=== PATIENT | female | born 1995 | race Two or more races ===

== ENCOUNTER 2023-07-29 02:25 | Inpatient (IN) | payer MEDICAID, OTHER ==
[2023-07-29] VITALS (8 sets, daily range): BP systolic 99–109; BP diastolic 59–82; PULSE 80–103; RESP 16–18; TEMP 97–99.1; O2SAT 97–100
[~2023-07-29] VITALS: Ht 165.1 cm; Wt 55.0 kg
[2023-07-29 03:10] LABS: BASOPHILS % (AUTO) 2.4 % (0.0-2.0); EOSINOPHILS % (AUTO) 1.3 % (1.0-6.0); HEMATOCRIT 43.5 % (36-46); HEMOGLOBIN 14.8 g/dL (12.0-16.0); LYMPHOCYTES # (AUTO) 2.9 K/uL (1.0-4.8); LYMPHOCYTES % (AUTO) 40.2 % (22.0-44.0); MEAN CORPUSCULAR HGB CONC 34.1 G/dL (31.0-37.0); MEAN CORPUSCULAR VOLUME 91 fL (80-100); MONOCYTES # (AUTO) 0.3 K/uL (0.1-1.0); MONOCYTES % (AUTO) 3.5 % (2.0-9.0); NEUTROPHILS # (AUTO) 3.9 K/uL (1.8-7.7); NEUTROPHILS % (AUTO) 52.6 % (40.0-70.0); PLATELET COUNT (AUTO) 364 K/uL (150-450); RED BLOOD CELL COUNT(AUTO) 4.79 MIL/uL (4.00-5.20); RED CELL DISTRIBUTION WIDTH 13.7 % (11.5-14.5); WHITE BLOOD COUNT (AUTO) 7.3 K/uL (4.5-11.0)
[2023-07-29 03:17] LABS: ANION GAP 12 mmol/L (8-16); CALCIUM, TOTAL 8.5 mg/dL (8.8-10.5); CARBON DIOXIDE 26 mmol/L (22-29); CHLORIDE 105 mmol/L (98-107); CREATININE 0.77 mg/dL (0.60-1.30); GLOMERULAR FILTR. RATE CALC > 60 mL/min (>60); GLUCOSE,RANDOM 114 mg/dL (70-110); POTASSIUM 3.8 mmol/L (3.5-5.1); SODIUM SERUM 143 mmol/L (136-145); UREA NITROGEN, BLOOD 5 mg/dL (7-18)
[2023-07-29 03:23] LABS: ALANINE AMINOTRANSFERASE 18 U/L (12-78); ALBUMIN 4.6 g/dL (3.4-5.0); ALKALINE PHOSPHATASE 79 U/L (46-116); ASPARTATE AMINOTRANSFERASE 25 U/L (15-37); BILIRUBIN,TOTAL 0.5 mg/dL (0.1-1.0); TOTAL PROTEIN, SERUM 8.5 g/dL (6.4-8.2)
[2023-07-29 03:30] LABS: ALCOHOL, BLOOD (SERUM) 322 mg/dL (0-10)
[2023-07-29 03:34] LABS: COVID AG,FIA SOURCE NASAL SWAB
[2023-07-29 03:41] LABS: PH,URINE DRUG SCREEN 7.5 (5.0-8.0)
[2023-07-29] MEDS ORDERED: OLANZapine 5 MG RAPDIS TABLET PO PRN (03:45)
[2023-07-29 03:46] LABS: ALCOHOL, URINE DRUG SCREEN POSITIVE (NEGATIVE); AMPHET/METH SCREEN,URINE NEGATIVE (NEGATIVE); BARBITURATE SCREEN, URINE NEGATIVE (NEGATIVE); BENZODIAZEPINES SCREEN,URINE NEGATIVE (NEGATIVE); CANNABINOID SCREEN,URINE NEGATIVE (NEGATIVE); COCAINE SCREEN,URINE NEGATIVE (NEGATIVE); METHADONE SCREEN, URINE NEGATIVE (NEGATIVE); OPIATE SCREEN,URINE NEGATIVE (NEGATIVE); PHENCYCLIDINE SCREEN,URINE NEGATIVE (NEGATIVE)
[2023-07-29 03:54] LABS: SARS-COV2 (COVID) ANTIGEN,FIA Negative (Negative)
[2023-07-29] MEDS: LORazepam 2 MG TABLET PO PRN (04:29)
[2023-07-29] MEDS ORDERED: QUET100T PO (04:42)
[2023-07-29] MEDS: QUEtiapine FUMARATE 100 MG TABLET PO ONE (05:09)
[2023-07-29] MEDS: ACETAMINOPHEN 325 MG TABLET PO ONE (07:02)
[2023-07-29] MEDS ORDERED: MAG HYDROX/ALUMINUM HYD/SIMETH ES 30 ML SUSPENSION UDCUP PO PRN (09:45)
[2023-07-29] MEDS ORDERED: MAGNESIUM HYDROXIDE SUSPENSION 30 ML UDCUP PO PRN (09:45)
[2023-07-29] MEDS ORDERED: LOPERAMIDE HCL 2 MG CAPSULE PO PRN ×2 (09:45)
[2023-07-29] MEDS ORDERED: GuaiFENesin/D-METHORPHAN [SUGAR-FREE] 200-20MG/10 ML SYRUP UDCUP PO PRN (09:45)
[2023-07-29] MEDS ORDERED: LORazepam 2 MG TABLET PO PRN (09:45)
[2023-07-29] MEDS ORDERED: HydrOXYzine PAMOATE 50 MG CAPSULE PO PRN (09:45)
[2023-07-29] MEDS ORDERED: TUBERCULIN, PURIFIED PROTEIN DERIVATIVE 5 TU/0.1 ML SYRINGE ID ONE (09:45)
[2023-07-29] MEDS: QUEtiapine FUMARATE 100 MG TABLET PO PRN (10:24)
[2023-07-29] MEDS: HALOPERIDOL LACTATE 5 MG/ML VIAL IM ONE (11:10)
[2023-07-29] MEDS: DiphenhydrAMINE HCL 50 MG/ML VIAL IM ONE (11:10)
[2023-07-29] MEDS: CYANOCOBALAMIN 1,000 MCG/ML VIAL IM ONE (12:30)
[2023-07-29] MEDS: THIAMINE 100 MG TABLET PO SCH (17:11)
[2023-07-29] MEDS: QUEtiapine FUMARATE 200 MG TABLET PO SCH (20:19)
[2023-07-29] MEDS: MELATONIN 5 MG TABLET PO SCH (20:19)
[2023-07-29] MEDS: ACETAMINOPHEN 325 MG TABLET PO PRN (20:24)
[2023-07-29] MEDS: PROMETHAZINE HCL 25 MG TABLET PO PRN (20:24)
[2023-07-30 08:21] LABS: HEMOGLOBIN A1C 5.1 % (3.8-5.6)
[2023-07-30 08:29] LABS: FREE T4 (FREE THYROXINE) 0.72 ng/dL (0.76-1.46); THYROID STIMULATING HORMONE 2.02 uIU/mL (0.36-3.74)
[2023-07-30 08:31] VITALS: BP 114/76; PULSE 93; RESP 16; TEMP 97.8; O2SAT 98
[2023-07-30] MEDS: OMEGA-3/DHA/EPA/FISH OIL 1,000 MG CAPSULE PO SCH (08:37)
[2023-07-30] MEDS: FLUoxetine HCL 20 MG CAPSULE PO SCH (08:39)
[2023-07-30] MEDS: MULTIVITAMINS WITH MINERALS, THERAPEUTIC TABLET PO SCH (08:39)
[2023-07-30] MEDS: FOLIC ACID 1 MG TABLET PO SCH (08:39)
[2023-07-30] MEDS: NALTREXONE HCL 50 MG TABLET PO SCH (08:40)
[2023-07-30] MEDS: LORazepam 2 MG TABLET PO SCH (09:40)
[2023-07-30 09:55] VITALS: BP 129/83; PULSE 89; RESP 18; TEMP 96.9; O2SAT 99
[2023-07-30 13:35] LABS: RAPID PLASMA REAGIN NONREACTIVE (NONREACTIVE)
[2023-07-30 20:00] VITALS: BP 148/61; PULSE 89; RESP 18; TEMP 97.8; O2SAT 99
[2023-07-30 20:03] VITALS: BP 148/61; PULSE 89; RESP 18; TEMP 97.8; O2SAT 99
[2023-07-30] MEDS ORDERED: IBUPROFEN 600 MG TABLET PO PRN (21:15)
[2023-07-30] MEDS ORDERED: MAG HYDROX/ALUMINUM HYD/SIMETH ES 30 ML SUSPENSION UDCUP PO PRN (21:15)
[2023-07-30] MEDS ORDERED: HydrOXYzine PAMOATE 50 MG CAPSULE PO PRN (21:15)
[2023-07-30] MEDS ORDERED: CloNIDine HCL 0.1 MG TABLET PO PRN (21:15)
[2023-07-30] MEDS: CloNIDine HCL 0.1 MG TABLET PO SCH (22:00)
[2023-07-30 23:00] VITALS: BP 148/61; PULSE 89; RESP 18; TEMP 97.8; O2SAT 99
[2023-07-31] VITALS (7 sets, daily range): BP systolic 123–137; BP diastolic 68–91; PULSE 79–88; RESP 16–20; TEMP 97.5–98.7; O2SAT 95–98
[2023-07-31 06:17] LABS: PREGNANCY RESULT, SERUM NEGATIVE (NEGATIVE)
[2023-07-31] MEDS ORDERED: ONDANSETRON HCL 4 MG/2 ML VIAL IM ONE (17:15)
[2023-07-31] MEDS: ONDANSETRON HCL 4 MG/2 ML VIAL IM PRN (17:34)
[2023-08-01] MEDS: LORazepam 2 MG TABLET PO PRN (02:58)
[2023-08-01 06:32] VITALS: BP 139/69; PULSE 76; RESP 18; TEMP 99; O2SAT 97
[2023-08-01 08:03] VITALS: BP 122/76; PULSE 97; RESP 17; TEMP 98; O2SAT 97
[2023-08-01] MEDS: POTASSIUM CHLORIDE 20 MEQ ER TABLET PO ONE (08:14)
[2023-08-01] MEDS: LORazepam 1 MG TABLET PO SCH (08:15)
[2023-08-01 09:45] VITALS: BP 129/88; PULSE 80; RESP 18; TEMP 97.8; O2SAT 97
[2023-08-01] MEDS: LORazepam 1 MG TABLET PO PRN (14:23)
[2023-08-01] MEDS: QUEtiapine FUMARATE 100 MG TABLET PO SCH (20:46)
[2023-08-01] MEDS: ZOLPIDEM TARTRATE 10 MG TABLET PO PRN (20:47)
[2023-08-01 23:25] VITALS: BP 106/59; PULSE 73; RESP 18; TEMP 97.4; O2SAT 99
[2023-08-02 06:07] VITALS: BP 102/63; PULSE 70; RESP 16; TEMP 97.8; O2SAT 98
[2023-08-02 08:14] VITALS: BP 112/66; PULSE 73; RESP 16; TEMP 97.8; O2SAT 96
[2023-08-02 08:23] LABS: AMYLASE 67 U/L (25-115); ANION GAP 8 mmol/L (8-16); CALCIUM, TOTAL 8.5 mg/dL (8.8-10.5); CARBON DIOXIDE 25 mmol/L (22-29); CHLORIDE 103 mmol/L (98-107); CHOL/HDL RATIO 3.1 (3.9-5.7); CHOLESTEROL 159 mg/dL (131-200); CREATININE 0.65 mg/dL (0.60-1.30); GLOMERULAR FILTR. RATE CALC > 60 mL/min (>60); GLUCOSE,RANDOM 103 mg/dL (70-110); HDL CHOLESTEROL 52 mg/dL (40-60); LDL CHOL (CALC.) 75 mg/dL (0-130); POTASSIUM 3.7 mmol/L (3.5-5.1); SODIUM SERUM 136 mmol/L (136-145); TRIGLYCERIDES 158 mg/dL (15-150); UREA NITROGEN, BLOOD 14 mg/dL (7-18)
[2023-08-02] MEDS: LORazepam 1 MG TABLET PO PRN (08:47)
[2023-08-02 16:00] VITALS: BP 101/58; PULSE 65; RESP 16; TEMP 98; O2SAT 99
[2023-08-02 16:02] VITALS: BP 92/58; PULSE 82; RESP 18; TEMP 98.1; O2SAT 99
[2023-08-02 18:00] VITALS: BP 106/62; PULSE 76; RESP 16; TEMP 98.3; O2SAT 99
[2023-08-03 09:08] LABS: APPEARANCE,URINE CLEAR (CLEAR); BILIRUBIN,URINE NEGATIVE (NEGATIVE); COLOR,URINE COLORLESS (YELLOW); GLUCOSE, URINE (UA) NEGATIVE (NEGATIVE); KETONES,URINE NEGATIVE (NEGATIVE); LEUKOCYTE ESTERASE ,URINE NEGATIVE (NEGATIVE); NITRATE,URINE NEGATIVE (NEGATIVE); OCCULT BLOOD,URINE SMALL (NEGATIVE); PROTEIN,URINE NEGATIVE (NEGATIVE); SPECIFIC GRAVITIY, URINE 1.005 (1.003-1.030); UROBILINOGEN,URINE <=1.0 mg/dL (<=1.0)
[2023-08-03 09:15] LABS: HCG,QUAL URINE NEGATIVE (NEGATIVE)
[2023-08-03 09:18] LABS: BACTERIA,URINE None Seen /HPF (None Seen); SQUAMOUS EPITHELIAL CELL,UR Few /LPF (None Seen); WBC,URINE None Seen /HPF (0-5)
== END 2023-08-02 23:15 | disposition home or self-care (01) | DRG 753 ==
LOC: EMS 02:30 → B3A 06:34
PROVIDERS: ADMIT Psychiatry & Neurology Psychiatry; ATTEND Psychiatry & Neurology Psychiatry
PROC: GZHZZZZ Group Psychotherapy (ICD-10-PCS; principal; 2023-07-30)
PROC: GZ58ZZZ Individual Psychotherapy, Cognitive-Behavioral (ICD-10-PCS; 2023-07-30)
DX: F31.5 Bipolar disorder, current episode depressed, severe, with psychotic features (principal); R45.851 Suicidal ideations; Z91.148 Patient's other noncompliance with medication regimen for other reason; F10.229 Alcohol dependence with intoxication, unspecified; Z20.822 Contact with and (suspected) exposure to COVID-19; F17.200 Nicotine dependence, unspecified, uncomplicated; J44.9 Chronic obstructive pulmonary disease, unspecified; Y90.8 Blood alcohol level of 240 mg/100 ml or more; Z91.011 Allergy to milk products
CPT/HCPCS: 80048; 80053; 80061; 80307; 81001; 82150; 83036; 84439; 84443; 84703; 85025; 86592; 99285; G0480; J1200; J1630; J2405; J3420; Q9967

== ENCOUNTER 2023-07-31 21:35 | Emergency (ER) | payer MEDICAID, OTHER ==
[~2023-07-31] VITALS: Ht 165.1 cm; Wt 56.0 kg
[~2023-07-31 21:35] MED LIST: QUET100T PO
[2023-07-31 21:44] VITALS: TEMP 99.1
[2023-07-31 22:36] LABS: ANION GAP 10 mmol/L (8-16); CALCIUM, TOTAL 9.2 mg/dL (8.8-10.5); CARBON DIOXIDE 29 mmol/L (22-29); CHLORIDE 101 mmol/L (98-107); CREATININE 0.85 mg/dL (0.60-1.30); GLOMERULAR FILTR. RATE CALC > 60 mL/min (>60); GLUCOSE,RANDOM 136 mg/dL (70-110); POTASSIUM 3.3 mmol/L (3.5-5.1); SODIUM SERUM 140 mmol/L (136-145); UREA NITROGEN, BLOOD 15 mg/dL (7-18)
[2023-07-31 22:38] LABS: BASOPHILS % (AUTO) 0.4 % (0.0-2.0); EOSINOPHILS % (AUTO) 0.1 % (1.0-6.0); HEMATOCRIT 43.1 % (36-46); HEMOGLOBIN 14.3 g/dL (12.0-16.0); LYMPHOCYTES # (AUTO) 1.6 K/uL (1.0-4.8); LYMPHOCYTES % (AUTO) 13.5 % (22.0-44.0); MEAN CORPUSCULAR HEMOGLOBIN 30.1 pg (26.0-34.0); MEAN CORPUSCULAR HGB CONC 33.2 G/dL (31.0-37.0); MEAN CORPUSCULAR VOLUME 91 fL (80-100); MONOCYTES # (AUTO) 0.7 K/uL (0.1-1.0); MONOCYTES % (AUTO) 5.7 % (2.0-9.0); NEUTROPHILS # (AUTO) 9.7 K/uL (1.8-7.7); NEUTROPHILS % (AUTO) 80.3 % (40.0-70.0); PLATELET COUNT (AUTO) 358 K/uL (150-450); RED BLOOD CELL COUNT(AUTO) 4.77 MIL/uL (4.00-5.20); RED CELL DISTRIBUTION WIDTH 13.9 % (11.5-14.5)
[2023-07-31 22:42] LABS: ALANINE AMINOTRANSFERASE 22 U/L (12-78); ALBUMIN 4.4 g/dL (3.4-5.0); ALKALINE PHOSPHATASE 66 U/L (46-116); ASPARTATE AMINOTRANSFERASE 34 U/L (15-37); BILIRUBIN,TOTAL 1.2 mg/dL (0.1-1.0); TOTAL PROTEIN, SERUM 8.3 g/dL (6.4-8.2)
[2023-07-31] MEDS: SODIUM CHLORIDE 0.9% 1,000 ML IV ONE (22:45)
[2023-07-31] MEDS: ONDANSETRON HCL 4 MG/2 ML VIAL IVP ONE (22:46)
[2023-07-31 23:34] VITALS: BP 135/82; PULSE 84; RESP 16
[2023-07-31 23:39] LABS: ALCOHOL, BLOOD (SERUM) < 3 mg/dL (0-10)
[2023-08-01 00:01] LABS: PH,URINE DRUG SCREEN 6.5 (5.0-8.0)
[2023-08-01 00:07] LABS: ALCOHOL, URINE DRUG SCREEN NEGATIVE (NEGATIVE); AMPHET/METH SCREEN,URINE NEGATIVE (NEGATIVE); BARBITURATE SCREEN, URINE NEGATIVE (NEGATIVE); BENZODIAZEPINES SCREEN,URINE NEGATIVE (NEGATIVE); CANNABINOID SCREEN,URINE NEGATIVE (NEGATIVE); COCAINE SCREEN,URINE NEGATIVE (NEGATIVE); METHADONE SCREEN, URINE NEGATIVE (NEGATIVE); OPIATE SCREEN,URINE NEGATIVE (NEGATIVE); PHENCYCLIDINE SCREEN,URINE NEGATIVE (NEGATIVE)
== END 2023-08-01 02:10 | disposition home or self-care (01) ==
LOC: EMS 21:43
DX: F32.9 Major depressive disorder, single episode, unspecified (principal); F17.210 Nicotine dependence, cigarettes, uncomplicated; Z91.011 Allergy to milk products
CPT/HCPCS: 99283; 96374; 96361; 80053; 85025; 36415; 80307; G0480; J2405; J7030

== ENCOUNTER 2023-08-02 20:20 | Inpatient (IN) | payer OTHER ==
[~2023-08-02] VITALS: Ht 167.6 cm; Wt 56.9 kg
[2023-08-02] MEDS: SODIUM CHLORIDE 0.9% 1,000 ML IV ONE (21:36)
[2023-08-02 21:46] LABS: COVID AG,FIA SOURCE NASAL SWAB
[2023-08-02] MEDS: ONDANSETRON HCL 4 MG/2 ML VIAL IVP ONE (21:46)
[2023-08-02 21:48] LABS: HEMATOCRIT 40.5 % (36-46); HEMOGLOBIN 13.6 g/dL (12.0-16.0); LYMPHOCYTES % (AUTO) 31.1 % (22.0-44.0); MEAN CORPUSCULAR HEMOGLOBIN 30.5 pg (26.0-34.0); MEAN CORPUSCULAR HGB CONC 33.6 G/dL (31.0-37.0); MEAN CORPUSCULAR VOLUME 91 fL (80-100); MONOCYTES # (AUTO) 0.4 K/uL (0.1-1.0); MONOCYTES % (AUTO) 6.8 % (2.0-9.0); NEUTROPHILS # (AUTO) 3.9 K/uL (1.8-7.7); NEUTROPHILS % (AUTO) 60.1 % (40.0-70.0); PLATELET COUNT (AUTO) 320 K/uL (150-450); RED BLOOD CELL COUNT(AUTO) 4.46 MIL/uL (4.00-5.20); RED CELL DISTRIBUTION WIDTH 13.2 % (11.5-14.5); WHITE BLOOD COUNT (AUTO) 6.4 K/uL (4.5-11.0)
[2023-08-02 21:49] LABS: SARS-COV2 (COVID) ANTIGEN,FIA Negative (Negative)
[2023-08-02 21:58] LABS: ANION GAP 8 mmol/L (8-16); CALCIUM, TOTAL 8.5 mg/dL (8.8-10.5); CARBON DIOXIDE 26 mmol/L (22-29); CHLORIDE 102 mmol/L (98-107); CREATININE 0.65 mg/dL (0.60-1.30); GLOMERULAR FILTR. RATE CALC > 60 mL/min (>60); GLUCOSE,RANDOM 105 mg/dL (70-110); POTASSIUM 3.9 mmol/L (3.5-5.1); SODIUM SERUM 136 mmol/L (136-145); UREA NITROGEN, BLOOD 15 mg/dL (7-18)
[2023-08-02 22:04] LABS: ALANINE AMINOTRANSFERASE 35 U/L (12-78); ALBUMIN 3.6 g/dL (3.4-5.0); ALKALINE PHOSPHATASE 57 U/L (46-116); ASPARTATE AMINOTRANSFERASE 28 U/L (15-37); BILIRUBIN,TOTAL 0.4 mg/dL (0.1-1.0); LIPASE 56 U/L (16-77)
[2023-08-02 22:13] LABS: LACTIC ACID 1.3 mmol/L (0.4-2.0)
[2023-08-02] MEDS ORDERED: LORazepam 2 MG TABLET PO PRN (22:30)
[2023-08-02] MEDS: ACETAMINOPHEN 325 MG TABLET PO ONE (22:52)
[2023-08-02] MEDS: LORazepam 2 MG TABLET PO SCH (22:52)
[2023-08-02] MEDS: 1: MAGNESIUM SULFATE 2 GM, MVI, ADULT NO.1 WITH VIT K 10 ML, THIAMINE 100 MG, FOLIC ACID IV SCH (23:06)
[2023-08-03] VITALS (7 sets, daily range): BP systolic 111–137; BP diastolic 66–87; PULSE 62–74; RESP 18–20; TEMP 98.1–98.9; O2SAT 99
[2023-08-03] MEDS: HEPARIN SODIUM,PORCINE 5,000 UNITS/ML VIAL SQ SCH
[2023-08-03] MEDS: ONDANSETRON HCL 4 MG/2 ML VIAL IVP PRN (05:32)
[2023-08-03 06:49] LABS: APPEARANCE,URINE CLEAR (CLEAR); BILIRUBIN,URINE NEGATIVE (NEGATIVE); COLOR,URINE YELLOW (YELLOW); GLUCOSE, URINE (UA) NEGATIVE (NEGATIVE); KETONES,URINE NEGATIVE (NEGATIVE); LEUKOCYTE ESTERASE ,URINE NEGATIVE (NEGATIVE); NITRATE,URINE NEGATIVE (NEGATIVE); OCCULT BLOOD,URINE NEGATIVE (NEGATIVE); PH,URINE 7.5 (5.0-8.0); PROTEIN,URINE NEGATIVE (NEGATIVE); UROBILINOGEN,URINE <=1.0 mg/dL (<=1.0)
[2023-08-03 06:55] LABS: BACTERIA,URINE None Seen /HPF (None Seen); RBC,URINE None Seen /HPF (0-2); WBC,URINE None Seen /HPF (0-5)
[2023-08-03] MEDS ORDERED: LORazepam 2 MG TABLET PO PRN (07:00)
[2023-08-03 08:10] LABS: ANION GAP 10 mmol/L (8-16); CALCIUM, TOTAL 7.8 mg/dL (8.8-10.5); CARBON DIOXIDE 24 mmol/L (22-29); CHLORIDE 100 mmol/L (98-107); CREATININE 0.55 mg/dL (0.60-1.30); GLOMERULAR FILTR. RATE CALC > 60 mL/min (>60); GLUCOSE,RANDOM 104 mg/dL (70-110); POTASSIUM 3.7 mmol/L (3.5-5.1); SODIUM SERUM 134 mmol/L (136-145); UREA NITROGEN, BLOOD 8 mg/dL (7-18)
[2023-08-03] MEDS: DOCUSATE SODIUM 100 MG CAPSULE PO SCH (08:16)
[2023-08-03 08:29] LABS: EOSINOPHILS % (AUTO) 0.5 % (1.0-6.0); HEMATOCRIT 40.1 % (36-46); HEMOGLOBIN 13.6 g/dL (12.0-16.0); LYMPHOCYTES # (AUTO) 2.2 K/uL (1.0-4.8); MEAN CORPUSCULAR HEMOGLOBIN 30.7 pg (26.0-34.0); MEAN CORPUSCULAR VOLUME 90 fL (80-100); MONOCYTES # (AUTO) 0.4 K/uL (0.1-1.0); MONOCYTES % (AUTO) 5.6 % (2.0-9.0); NEUTROPHILS # (AUTO) 5.3 K/uL (1.8-7.7); NEUTROPHILS % (AUTO) 65.9 % (40.0-70.0); PLATELET COUNT (AUTO) 334 K/uL (150-450); RED BLOOD CELL COUNT(AUTO) 4.45 MIL/uL (4.00-5.20); RED CELL DISTRIBUTION WIDTH 13.4 % (11.5-14.5); WHITE BLOOD COUNT (AUTO) 8.1 K/uL (4.5-11.0)
[2023-08-03] MEDS: METOCLOPRAMIDE HCL 5 MG/ML 2 ML VIAL IVP ONE (10:53)
[2023-08-03] MEDS: LORazepam 2 MG/ML VIAL IVP PRN (11:49)
[2023-08-03] MEDS: ACETAMINOPHEN 325 MG TABLET PO PRN (20:59)
[2023-08-03] MEDS: QUEtiapine FUMARATE 100 MG TABLET PO ONE (23:36)
[2023-08-04 04:12] VITALS: BP 106/66; PULSE 77; RESP 18; TEMP 99.2
[2023-08-04 07:48] VITALS: BP 109/80; PULSE 69; RESP 18; TEMP 98.6
[2023-08-04] MEDS: MULTIVITAMINS WITH MINERALS, THERAPEUTIC TABLET PO SCH (10:53)
[2023-08-04] MEDS ORDERED: QUEtiapine FUMARATE 100 MG TABLET PO PRN (12:30)
[2023-08-04] MEDS ORDERED: GABAPENTIN 300 MG CAPSULE PO SCH (13:00)
[2023-08-04] MEDS: GABAPENTIN 300 MG CAPSULE PO SCH (13:37)
[2023-08-04 16:57] VITALS: BP 112/64; PULSE 73; RESP 18; TEMP 97.6
[2023-08-04 19:10] VITALS: BP 118/69; PULSE 79; RESP 18; TEMP 98.5
[2023-08-04] MEDS: MELATONIN 5 MG TABLET PO SCH (20:00)
[2023-08-04] MEDS: MIRTAZAPINE 15 MG TABLET PO SCH (20:00)
[2023-08-04] MEDS: QUEtiapine FUMARATE 100 MG TABLET PO SCH (20:01)
[2023-08-04] MEDS ORDERED: MELATONIN 5 MG TABLET PO SCH (21:00)
[2023-08-04] MEDS ORDERED: QUEtiapine FUMARATE 200 MG TABLET PO SCH (21:00)
[2023-08-05 05:53] VITALS: BP 102/61; PULSE 77; RESP 18; TEMP 97.8
[2023-08-05] MEDS ORDERED: LORazepam 1 MG TABLET PO PRN (07:00)
[2023-08-05] MEDS: NALTREXONE HCL 50 MG TABLET PO SCH (08:28)
[2023-08-05] MEDS: OMEGA-3/DHA/EPA/FISH OIL 1,000 MG CAPSULE PO SCH (08:28)
[2023-08-05] MEDS: FLUoxetine HCL 20 MG CAPSULE PO SCH (08:28)
[2023-08-05 08:32] VITALS: BP 118/81; PULSE 64; RESP 18; TEMP 98.6
[2023-08-05] MEDS ORDERED: LORazepam 1 MG TABLET PO SCH (09:00)
[2023-08-05] MEDS: SODIUM CHLORIDE 0.9% 1,000 ML IV ONE (11:44)
[2023-08-05 16:44] VITALS: BP 137/98; PULSE 81; RESP 18; TEMP 97.7
[2023-08-05 19:41] VITALS: BP 137/69; PULSE 86; RESP 18; TEMP 98.9
[2023-08-06 04:00] VITALS: BP 134/87; PULSE 92; RESP 18; TEMP 98.5
[2023-08-06] MEDS ORDERED: LORazepam 1 MG TABLET PO PRN (07:00)
[2023-08-06 08:47] VITALS: BP 137/70; PULSE 82; RESP 18; TEMP 99.3
[2023-08-06] MEDS ORDERED: IOHEXOL 350 MG/ML 100 ML VIAL ONE (11:40)
[2023-08-06] MEDS ORDERED: SODIUM CHLORIDE 0.9% 100 ML ONE (11:41)
[2023-08-06 15:53] VITALS: BP 145/82; PULSE 84; RESP 18; TEMP 99.4
[2023-08-06 16:13] LABS: ALCOHOL, URINE DRUG SCREEN NEGATIVE (NEGATIVE); AMPHET/METH SCREEN,URINE NEGATIVE (NEGATIVE); BARBITURATE SCREEN, URINE NEGATIVE (NEGATIVE); BENZODIAZEPINES SCREEN,URINE NEGATIVE (NEGATIVE); CANNABINOID SCREEN,URINE NEGATIVE (NEGATIVE); COCAINE SCREEN,URINE NEGATIVE (NEGATIVE); METHADONE SCREEN, URINE NEGATIVE (NEGATIVE); OPIATE SCREEN,URINE NEGATIVE (NEGATIVE); PHENCYCLIDINE SCREEN,URINE NEGATIVE (NEGATIVE)
[2023-08-06] MEDS: SODIUM CHLORIDE 0.9% 1,000 ML IV ONE (18:40)
[2023-08-06 19:53] VITALS: BP 143/84; PULSE 89; RESP 18; TEMP 98.9
[2023-08-06] MEDS: PANTOPRAZOLE SODIUM 80 MG in SODIUM CHLORIDE 0.9% 100 ML IV SCH (20:25)
[2023-08-06] MEDS: BISACODYL 10 MG RECTAL RECTAL SUPPOSITORY PR SCH (20:40)
[2023-08-06] MEDS: PANTOPRAZOLE SODIUM 40 MG/VIAL IVP SCH (20:40)
[2023-08-07 03:32] VITALS: BP 131/92; PULSE 85; RESP 18; TEMP 98.9
[2023-08-07 07:49] LABS: BASOPHILS % (AUTO) 1.4 % (0.0-2.0); EOSINOPHILS % (AUTO) 0.9 % (1.0-6.0); HEMATOCRIT 41.1 % (36-46); HEMOGLOBIN 13.8 g/dL (12.0-16.0); LYMPHOCYTES # (AUTO) 1.6 K/uL (1.0-4.8); LYMPHOCYTES % (AUTO) 25.2 % (22.0-44.0); MEAN CORPUSCULAR HEMOGLOBIN 30.4 pg (26.0-34.0); MEAN CORPUSCULAR HGB CONC 33.5 G/dL (31.0-37.0); MEAN CORPUSCULAR VOLUME 91 fL (80-100); MONOCYTES # (AUTO) 0.4 K/uL (0.1-1.0); MONOCYTES % (AUTO) 7.2 % (2.0-9.0); NEUTROPHILS # (AUTO) 4.1 K/uL (1.8-7.7); NEUTROPHILS % (AUTO) 65.3 % (40.0-70.0); PLATELET COUNT (AUTO) 430 K/uL (150-450); RED BLOOD CELL COUNT(AUTO) 4.54 MIL/uL (4.00-5.20); WHITE BLOOD COUNT (AUTO) 6.2 K/uL (4.5-11.0)
[2023-08-07 08:00] VITALS: BP 134/90; PULSE 87; RESP 18; TEMP 98.4
[2023-08-07 08:02] LABS: ANION GAP 10 mmol/L (8-16); CALCIUM, TOTAL 8.3 mg/dL (8.8-10.5); CARBON DIOXIDE 25 mmol/L (22-29); CHLORIDE 100 mmol/L (98-107); CREATININE 0.64 mg/dL (0.60-1.30); GLOMERULAR FILTR. RATE CALC > 60 mL/min (>60); GLUCOSE,RANDOM 98 mg/dL (70-110); LIPASE 27 U/L (16-77); POTASSIUM 3.8 mmol/L (3.5-5.1); SODIUM SERUM 135 mmol/L (136-145); UREA NITROGEN, BLOOD 7 mg/dL (7-18)
[2023-08-07] MEDS: SODIUM CHLORIDE 0.9% 1,000 ML IV SCH (12:45)
[2023-08-07] MEDS: LORazepam 2 MG/ML VIAL IVP PRN (14:47)
[2023-08-07 15:30] VITALS: BP 133/70; PULSE 80; RESP 19; TEMP 98
[2023-08-07 20:43] VITALS: BP 143/64; PULSE 78; RESP 20; TEMP 98.9
[2023-08-08 05:32] VITALS: BP 137/85; PULSE 85; RESP 20; TEMP 98.7
[2023-08-08 07:06] LABS: BASOPHILS % (AUTO) 1.1 % (0.0-2.0); EOSINOPHILS % (AUTO) 1.6 % (1.0-6.0); HEMATOCRIT 41.3 % (36-46); HEMOGLOBIN 14.1 g/dL (12.0-16.0); LYMPHOCYTES % (AUTO) 32.4 % (22.0-44.0); MEAN CORPUSCULAR HEMOGLOBIN 30.6 pg (26.0-34.0); MEAN CORPUSCULAR HGB CONC 34.2 G/dL (31.0-37.0); MEAN CORPUSCULAR VOLUME 90 fL (80-100); MONOCYTES # (AUTO) 0.5 K/uL (0.1-1.0); MONOCYTES % (AUTO) 8.4 % (2.0-9.0); NEUTROPHILS # (AUTO) 3.6 K/uL (1.8-7.7); NEUTROPHILS % (AUTO) 56.5 % (40.0-70.0); PLATELET COUNT (AUTO) 444 K/uL (150-450); RED BLOOD CELL COUNT(AUTO) 4.61 MIL/uL (4.00-5.20); RED CELL DISTRIBUTION WIDTH 13.8 % (11.5-14.5); WHITE BLOOD COUNT (AUTO) 6.3 K/uL (4.5-11.0)
[2023-08-08 07:14] LABS: ANION GAP 7 mmol/L (8-16); CALCIUM, TOTAL 8.5 mg/dL (8.8-10.5); CARBON DIOXIDE 28 mmol/L (22-29); CHLORIDE 100 mmol/L (98-107); CREATININE 0.72 mg/dL (0.60-1.30); GLOMERULAR FILTR. RATE CALC > 60 mL/min (>60); GLUCOSE,RANDOM 103 mg/dL (70-110); POTASSIUM 3.5 mmol/L (3.5-5.1); SODIUM SERUM 134 mmol/L (136-145); UREA NITROGEN, BLOOD 7 mg/dL (7-18)
[2023-08-08 08:30] VITALS: BP 134/91; PULSE 91; RESP 18; TEMP 98.2
[2023-08-08] MEDS ORDERED: MINERAL OIL 133 ML ENEMA PR ONE (10:00)
[2023-08-08 15:34] VITALS: BP 138/96; PULSE 89; RESP 18; TEMP 97.7
[2023-08-08 20:28] VITALS: BP 129/70; PULSE 98; RESP 18; TEMP 98.6
[2023-08-09 04:46] VITALS: BP 123/74; PULSE 106; RESP 18; TEMP 98.8
[2023-08-09 07:41] LABS: BASOPHILS % (AUTO) 1.1 % (0.0-2.0); HEMATOCRIT 42.1 % (36-46); HEMOGLOBIN 14.1 g/dL (12.0-16.0); LYMPHOCYTES % (AUTO) 20.9 % (22.0-44.0); MEAN CORPUSCULAR HEMOGLOBIN 30.5 pg (26.0-34.0); MEAN CORPUSCULAR HGB CONC 33.6 G/dL (31.0-37.0); MEAN CORPUSCULAR VOLUME 91 fL (80-100); MONOCYTES # (AUTO) 0.8 K/uL (0.1-1.0); MONOCYTES % (AUTO) 8.3 % (2.0-9.0); NEUTROPHILS # (AUTO) 6.6 K/uL (1.8-7.7); NEUTROPHILS % (AUTO) 67.7 % (40.0-70.0); PLATELET COUNT (AUTO) 456 K/uL (150-450); RED BLOOD CELL COUNT(AUTO) 4.63 MIL/uL (4.00-5.20); RED CELL DISTRIBUTION WIDTH 13.7 % (11.5-14.5); WHITE BLOOD COUNT (AUTO) 9.7 K/uL (4.5-11.0)
[2023-08-09 07:55] LABS: ANION GAP 8 mmol/L (8-16); CALCIUM, TOTAL 8.4 mg/dL (8.8-10.5); CARBON DIOXIDE 27 mmol/L (22-29); CHLORIDE 101 mmol/L (98-107); CREATININE 0.72 mg/dL (0.60-1.30); GLOMERULAR FILTR. RATE CALC > 60 mL/min (>60); GLUCOSE,RANDOM 100 mg/dL (70-110); POTASSIUM 3.3 mmol/L (3.5-5.1); SODIUM SERUM 136 mmol/L (136-145); UREA NITROGEN, BLOOD 4 mg/dL (7-18)
[2023-08-09 08:12] VITALS: BP 130/90; PULSE 104; RESP 18; TEMP 97.7
[2023-08-09 15:55] VITALS: BP 118/79; PULSE 76; RESP 18; TEMP 97.4
[2023-08-09 19:58] VITALS: BP 108/60; PULSE 90; RESP 18; TEMP 98.2
[2023-08-09] MEDS: ONDANSETRON HCL 4 MG/2 ML VIAL IVP ONE (20:50)
[2023-08-09] MEDS: POTASSIUM CHLORIDE 20 MEQ ER TABLET PO ONE (20:51)
[2023-08-09] MEDS: PANTOPRAZOLE SODIUM 40 MG DR TABLET PO SCH (21:27)
[2023-08-10 15:38] LABS: COVID AG,FIA SOURCE NASAL SWAB
[2023-08-10 15:41] VITALS: BP 124/79; PULSE 96; RESP 18; TEMP 97.8
[2023-08-10 16:03] LABS: SARS-COV2 (COVID) ANTIGEN,FIA Negative (Negative)
[2023-08-10 19:42] VITALS: BP 99/65; PULSE 105; RESP 18; TEMP 98.4
[2023-08-11] MEDS: METOCLOPRAMIDE HCL 5 MG/ML 2 ML VIAL IVP ONE
[2023-08-11 04:20] VITALS: BP 108/77; PULSE 92; RESP 18; TEMP 97.3
[2023-08-11] MEDS: HydrOXYzine HCL 25 MG TABLET PO PRN (06:34)
[2023-08-11] MEDS: METOCLOPRAMIDE HCL 5 MG/ML 2 ML VIAL IVP SCH (08:59)
[2023-08-11 09:33] VITALS: BP 103/61; PULSE 104; RESP 18; TEMP 97.7
[2023-08-11] MEDS: HydrOXYzine HCL 10 MG TABLET PO SCH (16:06)
[2023-08-11 16:10] VITALS: BP 102/74; PULSE 88; RESP 20; TEMP 97.6
[2023-08-11 20:10] VITALS: BP 111/63; PULSE 102; RESP 20; TEMP 98.4
[2023-08-12 03:01] VITALS: BP 133/88; PULSE 95; RESP 19; TEMP 98.2
[2023-08-12 08:46] VITALS: BP 134/80; PULSE 103; RESP 20; TEMP 98.9
[2023-08-12] MEDS: MORPHINE SULFATE 2 MG/ML SYRINGE IVP ONE (11:26)
[2023-08-12] MEDS ORDERED: SODIUM CHLORIDE 0.9% 1,000 ML ONE (11:55)
[2023-08-12] MEDS: ACETAMINOPHEN 1000 MG/ISO-OSM 100 ML IV ONE (15:58)
[2023-08-12 16:38] VITALS: BP 138/87; PULSE 104; RESP 20; TEMP 98
[2023-08-12] MEDS: FLUCONAZOLE 100 MG TABLET PO SCH (16:38)
[2023-08-12 20:28] VITALS: BP 146/87; PULSE 84; RESP 20; TEMP 98.6
[2023-08-13 05:07] VITALS: BP 98/64; PULSE 74; RESP 20; TEMP 97.4
[2023-08-13] MEDS ORDERED: PROPOFOL 1% 20 ML VIAL IVP ONE (07:02)
[2023-08-13] MEDS ORDERED: LIDOCAINE/PF 2% 5 ML VIAL ONE (07:02)
[2023-08-13 08:52] VITALS: BP 107/73; PULSE 91; RESP 20; TEMP 97.6
[2023-08-13] MEDS ORDERED: ONDA-104 PO (14:02)
[2023-08-13] MEDS ORDERED: FLUC100T68 PO (14:02)
[2023-08-13] MEDS ORDERED: PANT-31 PO (14:02)
[2023-08-13] MEDS ORDERED: GABA-1181 PO (14:32)
[2023-08-13] MEDS ORDERED: MELA5TAB40 PO (14:32)
[2023-08-13] MEDS ORDERED: HYDR-3831 PO (14:32)
[2023-08-13] MEDS ORDERED: NALT50TA33 PO (14:32)
[2023-08-13] MEDS ORDERED: QUET100T34 PO (14:32)
[2023-08-13] MEDS ORDERED: OMEG-135 PO (14:32)
[2023-08-13] MEDS ORDERED: FLUO20CA36 PO (14:32)
[2023-08-13] MEDS ORDERED: MIRT-89 PO (14:32)
== END 2023-08-13 15:42 | disposition home or self-care (01) | DRG 241 ==
LOC: EMS 20:23 → 6N 23:19
PROVIDERS: ADMIT Internal Medicine; ATTEND Internal Medicine
PROC: 0DB88ZX Excision of Small Intestine, Via Natural or Artificial Opening Endoscopic, Diagnostic (ICD-10-PCS; 2023-08-12)
PROC: 0DB78ZX Excision of Stomach, Pylorus, Via Natural or Artificial Opening Endoscopic, Diagnostic (ICD-10-PCS; 2023-08-12)
PROC: 0DB58ZX Excision of Esophagus, Via Natural or Artificial Opening Endoscopic, Diagnostic (ICD-10-PCS; principal; 2023-08-12 14:30)
DX: K29.20 Alcoholic gastritis without bleeding (principal); B37.81 Candidal esophagitis; R45.851 Suicidal ideations; F50.00 Anorexia nervosa, unspecified; F13.20 Sedative, hypnotic or anxiolytic dependence, uncomplicated; F33.2 Major depressive disorder, recurrent severe without psychotic features; Z20.822 Contact with and (suspected) exposure to COVID-19; F10.139 Alcohol abuse with withdrawal, unspecified; K59.00 Constipation, unspecified; F17.210 Nicotine dependence, cigarettes, uncomplicated; F41.9 Anxiety disorder, unspecified; Z86.59 Personal history of other mental and behavioral disorders; Z91.011 Allergy to milk products; Z79.899 Other long term (current) drug therapy; Z68.20 Body mass index [BMI] 20.0-20.9, adult
CPT/HCPCS: 74177; 78264; 80048; 80053; 80307; 81001; 83605; 83690; 83735; 84132; 84703; 85025; 87081; 99285; A9541; C9113; J0131; J1644; J2060; J2270; J2405; J2704; J2765; J3411; J3475; J3490; J7030; J7050; Q9967